=== PATIENT | female | born 1980 | race Caucasian/White ===

== ENCOUNTER 2023-02-25 10:41 | Outpatient (CLI) | payer BC, SELFPAY ==
[2023-02-25 20:08] LABS: Chlamydia DNA Amplified* NOT DETECTED (No Detected); GC DNA Amplified* NOT DETECTED (No Detected)
== END 2023-02-25 10:42 | disposition home or self-care (01) ==
PROVIDERS: Visit Provider Physician Assistant
DX: Z11.3 Encounter for screening for infections with a predominantly sexual mode of transmission (principal)
CPT/HCPCS: 86592; 86703; 86803; 87340; 87491; 87591

== ENCOUNTER 2023-09-10 08:50 | Outpatient (CLI) | payer BC, SELFPAY ==
--- NOTE | 2023-09-10 08:45 | MM_ITS ---
Patient: FLOR DAWSON Facility:?[facility] Patient ID:?[id number] Site Patient ID:?[id number]. Site :?1980 Study:?XRay-Breast Bilateral 3D W/CAD-09/10/2023 9:28:19 AM Ordering Physician:Humberto August Final Report: BILATERAL DIGITAL SCREENING MAMMOGRAM WITH COMPUTER-AIDED DETECTION WITH TOMOSYNTHESIS CLINICAL HISTORY: Routine screening exam. COMPARISON: 03/02/2017 TECHNIQUE: Digital mammogram in CC and MLO projections including computer-aided detection (CAD) and tomosynthesis. BREAST COMPOSITION: The breasts are heterogeneously dense, which may obscure small masses. FINDINGS: RIGHT Breast: No suspicious findings. LEFT Breast: Focal asymmetric density upper outer quadrant 9 cm from the nipple. IMPRESSION: LEFT breast asymmetry/mass. RECOMMENDATIONS: Additional mammographic views of the LEFT breast including 3D CC/MLO. LEFT breast ultrasound may also be required. [facility] will contact the patient. BI-RADS Category 0: Incomplete: Need Additional Imaging Evaluation and/or Prior Mammograms for Comparison. A lay language report of this examination will be provided to the patient. Dictated by Krishna Jacobs MD @ 09/13/2023 11:17:57 AM/CRL:osiel PT/Dictated by: Krishna Jacobs MD @ 09/13/2023 11:18:00 AM Signed by:Piper Jacobs MD @09/13/2023 12:27:56 PM (Electronic Signature)
== END 2023-09-10 08:51 | disposition home or self-care (01) ==
LOC: MAMMO 08:50
PROVIDERS: Visit Provider Physician Assistant
DX: Z12.31 Encounter for screening mammogram for malignant neoplasm of breast (principal); N63.20 Unspecified lump in the left breast, unspecified quadrant; R92.2 Inconclusive mammogram
CPT/HCPCS: 77063; 77067

== ENCOUNTER 2023-10-01 08:33 | Outpatient (CLI) | payer BC, SELFPAY ==
--- NOTE | 2023-10-01 08:45 | MM_ITS ---
Patient: FLOR DAWSON Facility:?[facility] Patient ID:?[id number] Site Patient ID:?[id number] Site :?1980 Study:?XRay-Breast Left 3D W/CAD-10/01/2023 9:13:58 AM Ordering Physician:?Not A Local Final Report: DIGITAL DIAGNOSTIC LEFT MAMMOGRAM USING TOMOSYNTHESIS AND COMPUTER-AIDED DETECTION LEFT BREAST ULTRASOUND CLINICAL HISTORY: LEFT breast mass/asymmetry. COMPARISON: 09/10/2023. TECHNIQUE: Digital LEFT mammogram in two projections. Tomosynthesis and computer-aided detection utilized. Real-time ultrasound imaging of LEFT breast with imaging documentation. BREAST COMPOSITION: The breast is heterogeneously dense, which may obscure small masses. FINDINGS: 3D spot compression CC/MLO LEFT breast mammogram images submitted. Decreased conspicuity of previously noted asymmetric density. No architectural distortion or suspicious calcifications. No adenopathy. Targeted LEFT breast ultrasound performed at 2 o`clock 9 cm from the nipple. Normal dense fibroglandular tissue is present. No fibrocystic change or mass. IMPRESSION: No suspicious findings. No evidence of malignancy. RECOMMENDATIONS: Annual bilateral screening mammography. Results and recommendations discussed with the patient. BI-RADS Category 2: Benign A lay language report of this examination will be provided to the patient. Dictated by Krishna Jacobs MD @ 10/01/2023 11:06:59 AM jj/Dictated by: Krishna Jacobs MD @ 10/01/2023 11:07:00 AM Signed by:?Krishna Jacobs MD @10/01/2023 12:59:20 PM (Electronic Signature)
--- NOTE | 2023-10-01 09:15 | US_ITS ---
Patient: FLOR DAWSON Facility:?[facility] Patient ID:?[id number] Site Patient ID:?[id number] Site :?1980 Study:?US-Breast Left DSM TO READ-10/01/2023 9:29:06 AM Ordering Physician:?GIOVANNY SHEEHAN Final Report: PLEASE SEE DIGITAL DIAGNOSTIC LEFT MAMMOGRAM PERFORMED SAME DAY CRL:kari pierce/Dictated by: Krishna Jacobs MD @ 10/01/2023 11:07:00 AM Signed by:?Krishna Jacobs MD @10/01/2023 12:59:21 PM (Electronic Signature)
== END 2023-10-01 08:34 | disposition home or self-care (01) ==
LOC: MAMMO 08:34
PROVIDERS: Visit Provider Physician Assistant
DX: N63.20 Unspecified lump in the left breast, unspecified quadrant (principal); R92.8 Other abnormal and inconclusive findings on diagnostic imaging of breast
CPT/HCPCS: 76642; 77065; G0279

== ENCOUNTER 2024-02-29 11:08 | Outpatient (CLI) | payer BC, SELFPAY ==
[2024-03-02 11:35] LABS: HPV Source Cervix; HPV, High Risk by TMA Not Detected
== END 2024-02-29 11:09 | disposition home or self-care (01) ==
PROVIDERS: Visit Provider Physician Assistant
DX: Z01.419 Encounter for gynecological examination (general) (routine) without abnormal findings (principal); E66.9 Obesity, unspecified; R63.5 Abnormal weight gain; Z12.4 Encounter for screening for malignant neoplasm of cervix
CPT/HCPCS: 87624; 87625; 88141; 88142

== ENCOUNTER 2024-08-25 09:02 | Outpatient (CLI) | payer BC, SELFPAY ==
--- NOTE | 2024-08-25 09:15 | CRLHL7_ITS ---
For Patients: As a result of the Century Cures Act, medical imaging exams and procedure reports are released immediately into your electronic medical record. You may view this report before your referring provider. If you have questions, please contact your health care provider. CLINICAL HISTORY: Excessive and frequent menstruation TECHNIQUE: Real time, toussaint scale images were acquired of the pelvis using a transabdominal and transvaginal approach. Color Doppler analysis was performed of the ovaries. FINDINGS: The uterus measures 10.5 x 5.3 x 6.6 centimeters. The endometrium measures 1.3 centimeters. Intramural fibroid in the posterior uterus measuring 2.5 x 2.3 x 2.4 centimeters which appears to contact the endometrium. Right ovary measures is unremarkable normal blood flow 2.8 x 1.6 x 2.3 centimeters to the right ovary. Right ovary Left ovary is not seen. IMPRESSION: 1.3 centimeter endometrium. A posterior intramural fibroid which appears to contact the endometrium. Dictated by Cyndi Maza MD @ 08/25/2024 2:03:08 PM (Electronically Signed)
== END 2024-08-25 09:03 | disposition home or self-care (01) ==
LOC: US 09:02
PROVIDERS: Visit Provider Physician Assistant
DX: N92.0 Excessive and frequent menstruation with regular cycle (principal); D25.1 Intramural leiomyoma of uterus
CPT/HCPCS: 76830; 76856